=== PATIENT | male | born 1950 | race African-American/Black ===

== ENCOUNTER 2023-03-14 22:34 | Emergency (ER) | payer SELFPAY ==
[~2023-03-14] VITALS: Ht 172.7 cm; Wt 102.0 kg
[2023-03-14 22:40] VITALS: BP 148/94; O2SAT 99
[2023-03-14] MEDS ORDERED: ACETAMINOPHEN 325MG TABLET PO ONE (23:15)
[2023-03-15] MEDS ORDERED: BENZ100C86 MT (03:13)
[2023-03-15] MEDS ORDERED: IBUP-2029 MT (03:13)
[2023-03-15 03:43] VITALS: PULSE 84; RESP 18; TEMP 100.2
== END 2023-03-15 04:33 | disposition home or self-care (01) ==
LOC: ER 22:34
DX: B34.9 Viral infection, unspecified (principal); M79.10 Myalgia, unspecified site; R50.9 Fever, unspecified; E11.9 Type 2 diabetes mellitus without complications; I10 Essential (primary) hypertension; Z20.822 Contact with and (suspected) exposure to COVID-19
CPT/HCPCS: 99284; 71045; 87426; 87804 ×2; C9803